=== PATIENT | female | born 1965 | race Caucasian/White ===

== ENCOUNTER 2021-06-29 09:45 | Emergency (ER) | payer OTHER ==
[2021-06-29 10:27] LABS: BASOPHIL 0.7 % (0-2); EOSINOPHIL 1.2 % (0-5); HGB 14.6 g/dl (12.5-16.0); LYMPHOCYTE 16.3 % (15-48); MCH 33.1 pg (25.0-31.0); MCHC 34.8 g/dL (32.0-36.0); MCV 95.2 fL (78.0-100.0); MONOCYTE 23.4 % (0-12); MPV 10.8 fL (6.0-9.5); NEUTROPHIL 58.2 % (41-80); NRBC 0; PLT 216 K/uL (150-400); RBC 4.41 M/uL (4.20-5.40); RDW 13.8 % (11.5-14.0)
[2021-06-29 10:29] LABS: WBC 5.8 K/uL (4.0-10.5)
[2021-06-29 10:46] LABS: LACTIC ACID 2.5 mmol/L (0.4-1.9)
[2021-06-29 10:47] LABS: ALBUMIN 3.4 g/dL (3.4-5.0); ALKALINE PHOSHATASE 48 U/L (46-116); ALT 23 U/L (14-59); AST 18 U/L (15-37); BILIRUBIN - TOTAL 0.4 mg/dL (0.2-1.0); BUN 7 mg/dL (7-18); BUN/CREAT RATIO (CALC) 9.9 RATIO; CHLORIDE 103 mmol/L (98-107); CO2 (BICARBONATE) 21 mmol/L (21-32); CREATININE 0.71 mg/dL (0.51-0.95); GLUCOSE 75 mg/dL (74-106); LIPASE 50 U/L (73-393); POTASSIUM 3.4 mmol/L (3.5-5.1); TOTAL PROTEIN 6.4 g/dL (6.4-8.2)
== END 2021-06-29 12:41 | disposition home or self-care (01) ==
LOC: FER 09:45
PROVIDERS: Emergency Medicine
DX: R19.7 Diarrhea, unspecified (principal); I10 Essential (primary) hypertension; E78.5 Hyperlipidemia, unspecified; F17.210 Nicotine dependence, cigarettes, uncomplicated; Z88.8 Allergy status to other drugs, medicaments and biological substances; Z79.899 Other long term (current) drug therapy
CPT/HCPCS: 36415; 80053; 83605; 83690; 84443; 85025; 87045; 87046; 87449; G0480; Q9967